=== PATIENT | female | born 1925 | race Caucasian/White ===

== ENCOUNTER 2016-12-17 19:52 | Emergency (ER) | payer MEDICARE, OTHER ==
[~2016-12-17] VITALS: Ht 152.4 cm; Wt 54.5 kg
[~2016-12-17 19:52] MED LIST: ACYCLOVIR; ARICEPT; ARICEPT10 MG PO; IMODIUM A-D2 MG PO; LORTAB 7.5/5001 TA1 PO; NEURONTIN300 MG PO; PREDNISONE20 M1 PO; ULTRAM50 MG PO; ZANTAC150 MG PO
[2016-12-17 19:59] VITALS: TEMP 97.5
[2016-12-17] MEDS ORDERED: SYNTHROID0.05 MG/TA PO (20:03)
[2016-12-17] MEDS ORDERED: ARICEPT10 MG PO (20:03)
[2016-12-17] MEDS ORDERED: ALTACE 5MG5 MG PO (20:03)
[2016-12-17] MEDS ORDERED: VITAMIN E 400 U4001 PO (20:04)
[2016-12-17 20:27] LABS: BASO % 0.3 % (0.0-2.0); EOS % 0.2 % (0-4.0); GRAN # 4.9 (1.4-6.5); GRAN % 76.3 % (42.2-75.2); LYMPH # 0.9 (1.2-3.4); LYMPH % 14.1 % (20.0-51.0); MEAN CELL VOLUME 92 fl (80.0-100.0); MEAN CORPUSCULAR HGB CONC 33 g/dl (33.0-37.0); MEAN PLATELET VOLUME 12.8 fl (7.4-10.4); MONO # 0.6 (0.1-0.6); MONO % 8.9 % (1.7-9.3); PLATELET COUNT 115 K/mm3 (130-400); RED BLOOD COUNT 3.83 M/mm3 (4.10-5.30); REDCELL DISTRIBUTION WIDTH-CV 13.2 % (11.5-14.5); WHITE BLOOD COUNT 6.4 K/mm3 (4.8-10.8)
[2016-12-17 20:31] LABS: HEMATOCRIT 35.1 % (37.0-47.0); HEMOGLOBIN 11.7 g/dl (12.5-16.0); MEAN CORPUSCULAR HEMOGLOBIN 31 pg (27.0-31.0)
[2016-12-17 20:41] LABS: ADJUSTED CALCIUM 9.3 mg/dL (8.4-10.2); BILIRUBIN,TOTAL 0.8 mg/dL (0.0-1.0); CALCIUM 9.3 mg/dL (8.4-10.2); CREATININE, serum 1.44 mg/dL (0.52-1.25); POTASSIUM 4.2 mmol/L (3.4-5.0); TOTAL PROTEIN 7.2 gm/dL (6.4-8.2)
[2016-12-17 20:53] LABS: INFLUENZA B NEGATIVE
[2016-12-17 22:46] LABS: PH 5 (5-8); SQUAMOUS EPITHELIAL 0-2 /hpf; URINE APPEARANCE Clear; URINE BACTERIA Rare /hpf; URINE BILIRUBIN Negative (NEGATIVE); URINE BLOOD 1+ (NEGATIVE); URINE COLOR Yellow; URINE GLUCOSE Negative (NEGATIVE); URINE KETONE Trace (NEGATIVE); URINE RBC 0-2 /hpf; URINE UROBILINOGEN Negative (NEGATIVE); URINE WBC 0-2 /hpf
[2016-12-17 23:19] VITALS: BP 171/69; PULSE 77
== END 2016-12-17 23:19 | disposition home or self-care (01) ==
LOC: COL.ER 19:52
PROVIDERS: Family Medicine
DX: B34.9 Viral infection, unspecified (principal); R05 Cough
CPT/HCPCS: J7030